=== PATIENT | female | born 1975 | race Caucasian/White ===

== ENCOUNTER → 2021-03-02 11:59 | Emergency (ER) | payer BC, SELFPAY | END | disposition left against medical advice (07) | LOC: ANHED 13:05 | DX: Z53.21 Procedure and treatment not carried out due to patient leaving prior to being seen by health care provider (principal) | CPT/HCPCS: 99199 ==

== ENCOUNTER 2023-10-29 16:39 | Emergency (ER) | payer BC, SELFPAY ==
[2023-10-29 16:44] VITALS: BP 175/110; PULSE 114; RESP 18; O2SAT 98
[2023-10-29 16:52] VITALS: BP 156/90; PULSE 96; RESP 18; TEMP 37.1; O2SAT 97
--- NOTE | 2023-10-29 17:19 | ED.GENADULT ---
HPI - General Adult General Chief complaint: Unspecified <Jerome Calle PA-C - Last Filed: 10/29/23 20:59> Stated complaint: SWOLLEN FINGER <Jerome Calle PA-C - Last Filed: 10/29/23 20:59> Time Seen by Provider: 10/29/23 17:04 <Jerome Calle PA-C - Last Filed: 10/29/23 20:59> Source: patient <MINAL Monk Last Filed: 10/29/23 20:59> Mode of arrival: ambulatory <IMNAL Monk Last Filed: 10/29/23 20:59> Limitations: no limitations <Jerome Calle PA-C - Last Filed: 10/29/23 20:59> History of Present Illness HPI narrative: This is a 48-year-old female who presents to the ED with chief complaint of right index finger swelling and bruising since last night. States that she cut her finger around 3 4 days ago on a sonia piece of metal. States that she has been nursing the finger at home but last night it started the become significantly swollen. States that she felt the 2 today and was trying to rest but finger continued to more swelling and bruising. Tetanus up today. Denies fevers, chills, vomiting, syncope, lightheadedness. <Jerome Calle PA-C - Last Filed: 10/29/23 20:59> Related Data Allergies/adverse reactions: Allergies Allergy/AdvReac Type Severity Reaction Status Date / Time No Known Allergies Allergy Verified 09/11/23 11:35 <Jerome Calle PA-C - Last Filed: 10/29/23 20:59> Review of Systems Review of Systems: All systems as dictated in HPI <Jerome Calle PA-C - Last Filed: 10/29/23 20:59> [facility] Past Medical History Medical History: Medical History (Updated 10/30/23 @ 00:00 by Background Daemon) Arthritis OA DDD (degenerative disc disease) Depression Hx of back injury herniated and bulging disc Hx of hiatal hernia <MINAL Monk Last Filed: 10/29/23 20:59> Surgical History Surgical History: Surgical History (System 09/11/23 @ 11:35 by Janice Pearson) H/O hernia repair <Jerome Calle PA-C - Last Filed: 10/29/23 20:59> Social History Social History: Social History (System 09/11/23 @ 11:35 by Janice Pearson) Smoking status: Current every day smoker Gender identity (if verbalized by the patient): Female <Jerome Calle PA-C - Last Filed: 10/29/23 20:59> Exam Narrative: GENERAL: Well-appearing, well-nourished, and in no acute distress. HEAD: Normocephalic, atraumatic. EYES: PERRLA and EOMI. ENT: Nares clear, no rhinorrhea or epistaxis. Mucous membranes moist. Oropharynx without tonsillar hypertrophy exudate or other lesions. NECK: Supple. No adenopathy or masses. CHEST: No respiratory distress. Clear to auscultation. No wheezes rales or rhonchi HEART: Regular rate and rhythm. No murmur heard. Normal peripheral pulses. ABDOMEN: Soft, nontender, nondistended, normal active bowel sounds. MSK: Right hand: for significant swelling and bullous lesion noted to the right index finger. [place] signs all positive. Left hand: benign SKIN: see above NEURO: Alert and oriented x4. No focal deficits. PSYCH: Normal mood and affect. <Jerome Calle PA-C - Last Filed: 10/29/23 20:59> Course CURTAIN MENDER/PA Physician Supervision For this patient encounter, I reviewed the CURTAIN MENDER or PA documentation, treatment plan, and medical decision making; and I had [id number] time with this patient. <Luke Arambula MD - Last Filed: 10/30/23 13:35> Vital Signs Vital signs: Vital Signs Pulse Rate 114 H 10/29/23 16:44 Respiratory Rate 18 10/29/23 16:44 Blood Pressure 175/110 H 10/29/23 16:44 Pulse Oximetry 98 10/29/23 16:44 Temperature 98.7 F 10/29/23 16:52 Pulse Rate 94 10/29/23 17:48 Respiratory Rate 16 10/29/23 17:48 Blood Pressure 140/89 10/29/23 17:48 Pulse Oximetry 97 10/29/23 17:48 Oxygen Delivery Room Air 10/29/23 16:52 <Jerome Calle PA-C - Last Filed: 10/29/23 20:59> Vital Signs Pulse Rate 114 H 10/29/23 16:44 Respiratory
[2023-10-29] MEDS: SODIUM CHLORIDE 0.9% IV 1,000 ML 999 ML IV CONT (17:46)
[2023-10-29 17:48] VITALS: BP 140/89; PULSE 94; RESP 16; O2SAT 97
[2023-10-29] MEDS: HYDROmorphone HCL INJ (*CRX) 1 MG/ML SYR 0.5 MG IV PUSH (17:48)
[2023-10-29] MEDS: ONDANSETRON INJ 4 MG/2 ML VIAL IV PUSH (17:48)
[2023-10-29 17:54] LABS: Basophils Absolute Auto 0.1 K/mm3 (0.0-0.1); Basophils Percent Auto 0.5 % (0.2-1.2); Eosinophils Absolute Auto 0.1 K/mm3 (0-0.3); Eosinophils Percent Auto 0.6 % (0-4.4); Hematocrit 38.2 % (37.0-47.0); Hemoglobin 12.4 g/dL (12.0-15.0); Immature Granulocyte Absolute 0.06 K/mm3 (0.00-0.031); Immature Granulocyte Percent A 0.5 % (0-0.5); Lymphocytes Absolute Auto 0.89 K/mm3 (0.9-3.2); Lymphocytes Percent Auto 7.1 % (18.3-44.2); Mean Corpuscular HGB Conc 32.5 g/dl (32-36); Mean Corpuscular Hemoglobin 30.4 pg (26-34); Mean Corpuscular Volume 93.6 fl (80-100); Mean Platelet Volume 9.8 fl (7.4-10.4); Monocytes Percent Auto 7.8 % (2.6-8.5); Neutrophils Absolute Auto 10.5 K/mm3 (1.3-6.7); Neutrophils Percent Auto 83.5 % (45.5-73.1); Platelet Count Result 373 k/mm3 (150-375); Red Blood Count 4.08 M/mm3 (4.2-5.4); White Blood Count 12.5 K/mm3 (4.5-10.0)
[2023-10-29 18:08] LABS: Lactic Acid Reflex 2.2 mmol/L (0.7-2.0)
[2023-10-29 18:10] LABS: Alanine Aminotransferase 17 U/L (6-35); Albumin Level 4.4 g/dL (3.5-5.1); Alkaline Phosphatase 65 U/L (38-126); Anion Gap 13 mmol/L (4-12); Aspartate Amino Transferase 24 U/L (14-36); Bilirubin,Total 0.4 mg/dL (0.2-1.3); Blood Urea Nitrogen 10 mg/dL (7-17); CRP 6.2 mg/dL (<1.0); Carbon Dioxide 20 mmol/L (22-30); Chloride 103 mmol/L (98-107); Estimated CRCL calculation 121 ml/min; Estimated Glomerular Filt Rate > 60; Glucose 107 mg/dL (65-110); Potassium 3.3 mmol/L (3.4-5.0); Sodium 136 mmol/L (137-145)
--- NOTE | 2023-10-29 18:40 | PC.NURSE ---
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
--- NOTE | 2023-10-29 18:55 | PC.NURSE ---
[facility] transported patient to [facility] ER
[2023-10-29 20:51] LABS: Reflex Lactic Acid Yes or No Add Lactic
== END 2023-10-29 18:55 | disposition short-term general hospital (02) ==
PROVIDERS: Emergency Provider Physician Assistant
DX: S63.630A Sprain of interphalangeal joint of right index finger, initial encounter (principal); M19.90 Unspecified osteoarthritis, unspecified site; F17.200 Nicotine dependence, unspecified, uncomplicated; W26.8XXA Contact with other sharp object(s), not elsewhere classified, initial encounter
CPT/HCPCS: 36415; 80053; 83605; 85025; 86140; 87040; 96361; 96374; 96375; 99284; 99285; J1170; J2405; J7030